=== PATIENT | female | born 1955 | race American Indian/Alaskan Native ===

== ENCOUNTER 2016-08-04 06:08 | Day surgery (SDC) | payer OTHER ==
[2016-08-04] MEDS ORDERED: NACL 0.9% 1000 ML 1,000 ML ONE (07:35)
--- NOTE | 2016-08-04 07:51 | Anesthesia Consultation ---
Anesthesia Consult and Med Hx Date of service: 08/04/16 - Airway Anesthetic Teeth Evaluation: Good ROM Head & Neck: Adequate Mental/Hyoid Distance: Adequate Mallampati Class: Class I Intubation Access Assessment: Good - Pulmonary Exam CTA: Yes - Cardiac Exam Cardiac Exam: RRR - Pre-Operative Health Status ASA Pre-Surgery Classification: ASA2 Proposed Anesthetic Plan: General - Cardiovascular System Hx Hypertension: Yes - Endocrine Hx Hypothyroidism: Yes - Additional Comments Anesthesia Medical History Comments: No previous anesthesia complications.
--- NOTE | 2016-08-04 07:52 | Anesthesia Day of Surgery ---
Anesthesia Day of Surgery - Day of Surgery Patient Examined: Yes Patient H&P Reviewed: Yes Patient is NPO: Yes Beta Blockers: No (BP & HR WNL. Not necessary.)
--- NOTE | 2016-08-04 08:07 | Discharge Summary ---
Providers - Providers Date of discharge: 08/04/16 Attending physician: EZEQUIEL LOPEZ Hospitalization Reason for admission: outpatient eGD Condition: Stable Procedures: EGD Disposition: TO HOME OR SELFCARE Core Measure Documentation - Palliative Care Palliative Care/ Comfort Measures: Not Applicable - Core Measures Any of the following diagnoses?: none Exam - Physical Exam Narrative exam: unchanged since preop Plan Activity: advance as tolerated Diet: low carbohydrate
[2016-08-04] MEDS ORDERED: DIPRIVAN 10 MG/ML IV ONE (08:25)
[2016-08-04] MEDS ORDERED: WATER FOR IRRIG STERILE IR ONE (08:30)
[2016-08-04] MEDS ORDERED: NACL 0.9% 1000 ML 1,000 ML IV SCH (09:00)
--- NOTE | 2016-08-04 09:05 | Operative Report ---
Operative Report Operative Report: EGD Post bypass DATE: 08/04/2016 OPERATIVE REPORT - EGD PREOP DIAGNOSIS: gastric dyspepsia, dysphagia POSTOP DIAGNOSIS: same SURGERY: Upper endoscopy. SURGEON: Sotero Queen M.D. [employer] OFFICER: Julian Morris M.D. TYPE OF ANESTHESIA: MAC. ESTIMATED BLOOD LOSS: None. COMPLICATIONS: None. SPECIMENS REMOVED: None. FINDINGS: 1. Dilated patulous esophagus 2. Distal esophagitis 2. gastric pouch - 50ml 3. gastrojejunal anastomosis is 25mm INDICATIONS:INDICATION FOR PROCEDURE: Patient is a 61-year-old F with h/o RYGB and s/p bypass revision in 2013. The patient is here today for evaluation for dysphagia and dyspepsia. PROCEDURE DETAILS: After consent was reviewed, patient was taken back to the operating room where patient was placed in the left lateral decubitus position and a bite block was placed in the mouth. After a time-out was called, MAC anesthesia was initiated. I then passed the endoscope into the patients oropharynx, into the esophagus, visualized the entire esophagus, which showed distal esophagitis and possible metaplasia changes. I then visualized the gastric pouch which was normal and about 50ml in size. The gastrojejunal anastomosis was normal at about 25mm. The proximal portion of the orquidea limb was normal. I then proceed to take biopsies of the mucosal changes seen on dital esophagus x3. Then I desufflated the gastric pouch and removed the endoscope. Patient tolerated procedure well and was transferred to recovery room in good and stable condition
[2016-08-04 09:37] VITALS: BP 128/73
--- NOTE | 2016-08-04 10:02 | Post Anesthesia Evaluation ---
- Post Anesthesia Evaluation Patient Participated: Yes Airway Patent: Yes Stable Respiratory Function: Yes Nausea/Vomiting: No Temp > 96.8F: Yes Pain Manageable: Yes Adequeate Hydration: Yes Anesthesia Complications: No Block Receding Appropriately: Not Applicable Patient on Ventilator: No
== END 2016-08-04 06:09 | disposition home or self-care (01) ==
LOC: GIO 06:08
PROVIDERS: ATTEND Specialist
DX: K22.8 Other specified diseases of esophagus (principal); K20.8 Other esophagitis; I10 Essential (primary) hypertension; E03.9 Hypothyroidism, unspecified; Z98.890 Other specified postprocedural states; Z79.899 Other long term (current) drug therapy; Z98.84 Bariatric surgery status; Z83.3 Family history of diabetes mellitus; Z82.49 Family history of ischemic heart disease and other diseases of the circulatory system
CPT/HCPCS: 43239; 88305; 88312; J2704; J7030